=== PATIENT | female | born 1960 | race Caucasian/White ===

== ENCOUNTER 2016-06-10 02:20 | Emergency (ER) | payer BC ==
[2016-06-10] MEDS ORDERED: LIDO/EPINEPHRINE/SOD BICARB 20 ML VIAL INFIL ONE (03:01)
[2016-06-10] MEDS ORDERED: CEPHALEXIN MONOHYDRATE 250 MG CAP PO ONE (03:43)
--- NOTE | 2016-06-11 06:09 | EMERGENCY ROOM VISIT NOTE ---
History Stated Complaint: R FT LACERATION History of Present Illness The patient is a 55 year old female who presents to the Emergency Room with complaints of a laceration of her right foot. The patient reports that she accidentally cut her right foot on a broken window. She states that it was dark and she did not realize that the window was broken. Her tetanus is up-to- date. There is minimal active bleeding. She rates her discomfort a 4/10. She denies any numbness or weakness of the foot. She denies any other injuries. Review of Systems A complete 6 point review of systems was reviewed with the patient with pertinent positives and negatives as per history of present illness. All else were negative. Physical Exam Physical Exam VITALS: Vitals are noted on the nurse's note and reviewed by myself. Vital signs stable. GENERAL: This is a 55-year-old female, in no acute distress, nondiaphoretic, well-developed well-nourished. SKIN: There is a 4.5 cm curved laceration to the right foot over the first MTP. The laceration does extend to the bursa does not appear to puncture it. There are not tendons or bone seen in the base of the wound. There is no active bleeding. MUSCULOSKELETAL: Full range of motion of the right foot and toes. NEURO: Patient was alert and oriented to person place and time. Medical Decision & Procedures Procedure Verbal consent was obtained to perform the procedure. Using sterile technique the wound was cleaned with Betadine. The area was sterilely draped. 4 ml of 1 % buffered lidocaine with epinephrine was used to anesthetize the laceration. Once the patient was anesthetized, the wound was copiously irrigated under pressure with sterile saline. The wound was explored and there were no deep structures injured such as tendons, bone, or significant blood vessels. The laceration was repaired using 11 simple interrupted 4-0 nylon sutures with the wound edges being well approximated. The patient tolerated the procedure well. Hemostasis was achieved. The area was cleaned with sterile saline and dressed with bacitracin ointment and bandage. Medical Decision The patient was hydrated as above. She sustained a right foot laceration. Laceration was repaired as noted above. As the laceration did extend into the bursa sac, the patient will be placed on antibiotics. She was placed in a postoperative shoe and given a walker. She verbalized understanding of my assessment and treatment plan and was discharged home in good condition. Impression Primary Impression: Laceration of right foot Departure Information Dispostion Home / Self-Care Condition FAIR Referrals Nita Banda M.D. (PCP) Problem Qualifiers Primary Impression: Laceration of right foot Encounter type: initial encounter Qualified Codes: S91.311A - Laceration without foreign body, right foot, initial encounter
== END 2016-06-10 04:10 | disposition home or self-care (01) ==
LOC: C.EDB 02:20
DX: S91.311A Laceration without foreign body, right foot, initial encounter (principal); W25.XXXA Contact with sharp glass, initial encounter; Y92.89 Other specified places as the place of occurrence of the external cause